=== PATIENT | female | born 1995 | race Two or more races ===

== ENCOUNTER → 2020-09-06 | Emergency (ER) | payer MEDICAID ==
[~2020-09-06] VITALS: Ht 160 cm; Wt 75.7 kg
[2020-09-06 19:42] VITALS: BP 139/71
--- NOTE | 2020-09-06 21:00 | NUR ---
EMT AT BEDSIDE FOR SHORT LEG
--- NOTE | 2020-09-06 21:04 | NUR ---
Patient discharged to home in stable condition. Written and verbal after care instructions given. Patient verbalizes understanding of instruction and RX. Pt provided with crutches. Pt ambulated through E.D. using cruthes. vss.
--- NOTE | 2020-09-06 21:47 | NUR ---
UNABLE TO DISCHARGE DUE TO MEDITEC
== END | disposition home or self-care (01) ==
LOC: ER 19:44
DX: S82.831A Other fracture of upper and lower end of right fibula, initial encounter for closed fracture (principal); S82.891A Other fracture of right lower leg, initial encounter for closed fracture; Z88.0 Allergy status to penicillin; X50.0XXA Overexertion from strenuous movement or load, initial encounter; Y93.89 Activity, other specified; Y92.89 Other specified places as the place of occurrence of the external cause; Y99.8 Other external cause status
CPT/HCPCS: 73590-TC; 73610-TC